=== PATIENT | male | born 1950 | race Caucasian/White ===

== ENCOUNTER → 2019-09-29 | Outpatient (CLI) | payer OTHER ==
[~2019-09-29] MED LIST: REGADENOSON 0.4 MG/5 ML PF SYG IVP ONE; REGADENOSON 0.4 MG/5 ML PF SYG IVP SCH
== END | disposition home or self-care (01) ==
LOC: SHCH 09:01
PROVIDERS: ATTEND Internal Medicine Cardiovascular Disease
DX: R07.9 Chest pain, unspecified (principal); R05 Cough; I34.1 Nonrheumatic mitral (valve) prolapse; I48.91 Unspecified atrial fibrillation; R06.00 Dyspnea, unspecified; R51 Headache
CPT/HCPCS: 78452; 93017; 96374; A9500 ×2; J2785

== ENCOUNTER → 2023-01-02 | Outpatient (CLI) | payer OTHER ==
[~2023-01-02] MED LIST changes: +GADOTERATE MEGLUMINE 10 MMOL/20 ML VIAL IV ONE; -REGADENOSON 0.4 MG/5 ML PF SYG IVP ONE; -REGADENOSON 0.4 MG/5 ML PF SYG IVP SCH
== END | disposition home or self-care (01) ==
LOC: RAH 07:55
PROVIDERS: ATTEND Internal Medicine Cardiovascular Disease
DX: I71.21 Aneurysm of the ascending aorta, without rupture (principal); I70.0 Atherosclerosis of aorta; M47.815 Spondylosis without myelopathy or radiculopathy, thoracolumbar region
CPT/HCPCS: 71555; A9575

== ENCOUNTER → 2024-03-18 | Outpatient (CLI) | payer OTHER ==
--- NOTE | 2024-03-18 11:48 | HMCIMG ---
US RENAL SONOGRAM HISTORY: Gross hematuria COMPARISON: None TECHNIQUE: Renal and bladder ultrasound study was performed. FINDINGS: The right kidney measures 11.8 x 5.5 x 4.7 cm. The left kidney measures 11.4 x 5.5 x 4.5 cm. No evidence of hydronephrosis is seen of either kidney. There is left lower pole renal stone measuring 9 mm. Both kidneys are seen. Bladder is moderately distended. Irregular echogenic masslike structure is seen in the bladder without flow with protrusion measuring 3.5 x 2.6 x 4 cm may be related to mass versus blood clot. The study is limited due to patient's large body habitus. IMPRESSION: 1. No hydronephrosis is seen. Left lower pole renal stone measuring 9 mm. Irregular echogenic masslike structure may be related to mass versus blood clot measuring 3.5 x 2.6 x 4 cm in the bladder.
== END | disposition home or self-care (01) ==
LOC: RAH 09:41
PROVIDERS: ATTEND Internal Medicine
DX: N20.0 Calculus of kidney (principal); N32.89 Other specified disorders of bladder; R31.0 Gross hematuria
CPT/HCPCS: 76770

== ENCOUNTER → 2024-04-08 | Outpatient (CLI) | payer OTHER ==
[~2024-04-08] MED LIST changes: -GADOTERATE MEGLUMINE 10 MMOL/20 ML VIAL IV ONE; +IOHEXOL 350 MG/ML 100ML INFUS..BTL IV ONE
--- NOTE | 2024-04-08 13:02 | HMCIMG ---
CT ABDOMEN/PELVIS W/WO CONTRAS REASON: ABN IMG ON RENAL PEL, URETER COMPARISON: None. TECHNIQUE: Images are obtained from lung bases to symphysis pubis before and after IV contrast, 100 cc Omnipaque 350. FINDINGS: Lung bases are clear. There are some very small cysts in the liver. There are no solid focal liver lesions.. There is a 14 mm stone lower pole left kidney, nonobstructing. Kidneys appear otherwise unremarkable.. There is no mass or hydronephrosis. Spleen and pancreas appear unremarkable. There is a very small stones in an otherwise normal-appearing gallbladder. There is mild sigmoid diverticulosis without evidence of diverticulitis. There is a 3.0 x 2.5 x 4.3 cm mass left posterolateral base of the bladder. The urinary bladder appears otherwise unremarkable. Prostate is not enlarged. Bowel loops appear otherwise unremarkable. This includes normal appearance of the appendix There is no evidence of free fluid or intraperitoneal air. There are no focal fluid collections. There is calcification of the aorta without evidence of aneurysm. Aorta and retroperitoneum appear otherwise normal. There is no retroperitoneal or pelvic lymphadenopathy. The anterior abdominal wall is intact. Osseous structures appear unremarkable. IMPRESSION: 1. 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 2. Cholelithiasis without evidence of acute cholecystitis. 3. 1.4 cm nonobstructing stone lower pole calyx left kidney. CT was performed with one or more following dose reduction techniques: automated exposure control, adjustment of the mA and kv according to patient's size, or use of a iterative reconstruction technique.
== END | disposition home or self-care (01) ==
LOC: RAH 09:43
PROVIDERS: ATTEND Internal Medicine
DX: K80.20 Calculus of gallbladder without cholecystitis without obstruction (principal); N28.9 Disorder of kidney and ureter, unspecified; K76.89 Other specified diseases of liver; K57.30 Diverticulosis of large intestine without perforation or abscess without bleeding; N20.0 Calculus of kidney; R93.41 Abnormal radiologic findings on diagnostic imaging of renal pelvis, ureter, or bladder
CPT/HCPCS: 74178; Q9967

== ENCOUNTER → 2024-12-23 | Outpatient (CLI) | payer OTHER ==
--- NOTE | 2024-12-28 12:33 | HMCIMG ---
EXAM: CTA Chest with and without Intravenous Contrast CLINICAL HISTORY: Aneurysm of the ascending aorta, without rupture TECHNIQUE: Axial CTA images of the chest with and without intravenous contrast. Multiplanar reconstructed images were created and reviewed. COMPARISON: CTA chest dated 02/20/2021 and MRA chest dated 01/02/2023 FINDINGS: AORTA: Extensive atheromatous wall calcifications of the intrathoracic aorta and the visualized abdominal aorta. Stable aneurysmal dilatation of the ascending thoracic aorta measuring up to 4.6 cm and the proximal descending thoracic aorta measuring up to 4.2 cm. Redemonstrated, eccentric mixed atheromatous plaque in the proximal descending thoracic aorta, causing approximately 20???30% luminal narrowing. Stable fusiform aneurysmal dilatation of the visualized infrarenal abdominal aorta measuring up to 3.4 cm. No dissection flap or evidence of rupture. PULMONARY ARTERIES: No central or segmental pulmonary embolism. 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 Stable 3mm right lower lobe pulmonary nodule (series 4, image 49). Slight interval increase in size of the left upper lobe pulmonary nodule measuring 3 mm (series 4, image 22). Interval new 2 mm calcific nodule in the right lower lobe (series 4, image 48). No pulmonary mass. Mild subsegmental atelectasis with fibrotic strands in the right middle lobe and bilateral lower lobes. PLEURAL SPACES: No pleural effusions. No pneumothorax. HEART: Stable mild cardiomegaly. No pericardial effusion. Coronary artery atheromatous calcifications. LYMPH NODES: No thoracic lymphadenopathy. UPPER ABDOMEN: Diffuse hepatic steatosis with a stable simple hepatic cyst. Mild bilateral non-specific perinephric fat stranding and haziness. Small stable renal cysts in the right upper pole. Small stable hiatus hernia. Uncomplicated colonic diverticula. BONES: No acute fracture or destructive lesion. Multilevel moderate thoracic spine degenerative changes. IMPRESSION: 1. Stable aneurysmal dilation of ascending thoracic aorta (4.6 cm), proximal descending thoracic aorta (4.2 cm) without dissection or rupture. 2. Satble eccentric mixed atheromatous plaque in the proximal descending thoracic aorta, causing approximately 20???30% luminal narrowing. Stable fusiform aneurysmal dilatation of the infrarenal abdominal aorta (3.2 cm). 3. No pulmonary embolus. 4. Slight interval increase in size of left upper lobe pulmonary nodule, now 3 mm. Stable 3mm right lower lobe pulmonary nodule. No routine follow-up indicated 5. Stable centriacinar emphysema with upper lobe predominance. No pulmonary infiltrates or pleural effusions. /Armstrong
== END | disposition home or self-care (01) ==
LOC: RAH 08:59
PROVIDERS: ATTEND Internal Medicine Cardiovascular Disease
DX: J43.2 Centrilobular emphysema (principal); J98.11 Atelectasis; I71.21 Aneurysm of the ascending aorta, without rupture; I71.23 Aneurysm of the descending thoracic aorta, without rupture; I71.43 Infrarenal abdominal aortic aneurysm, without rupture; I70.0 Atherosclerosis of aorta
CPT/HCPCS: 71275; Q9967